=== PATIENT | male | born 1980 | race African-American/Black ===

== ENCOUNTER 2017-05-12 17:32 | Emergency (ER) | payer MEDICAID ==
[~2017-05-12] VITALS: Ht 177.8 cm; Wt 75.0 kg
[~2017-05-12 17:32] MED LIST: PHEN-434
[2017-05-12] MEDS ORDERED: LIDOCAINE HCL 1%/EPI 1:200,000 30 ML VIAL MC ONE (19:00)
[2017-05-12] MEDS ORDERED: TETANUS, DIPHTHERIA, PERTUSSIS VAC/PF 0.5ML (>7YR OLD) IM ONE (19:00)
[2017-05-12 19:17] VITALS: BP 106/64
[2017-05-12] MEDS ORDERED: BACITRACIN ZINC OINT UDPKT TOP ONE (20:00)
== END 2017-05-12 20:28 | disposition home or self-care (01) ==
LOC: ER 17:32
DX: S61.212A Laceration without foreign body of right middle finger without damage to nail, initial encounter (principal); S00.83XA Contusion of other part of head, initial encounter; G40.909 Epilepsy, unspecified, not intractable, without status epilepticus; Y04.1XXA Assault by human bite, initial encounter; Y93.89 Activity, other specified; Y99.8 Other external cause status; Y92.89 Other specified places as the place of occurrence of the external cause
CPT/HCPCS: 12001; 90471; 90715; 99284; X7700; Z7610

== ENCOUNTER 2017-08-29 00:59 | Emergency (ER) | payer MEDICAID ==
[~2017-08-29] VITALS: Ht 177.8 cm; Wt 75.0 kg
[2017-08-29 01:00] VITALS: BP 123/84
== END 2017-08-29 03:01 | disposition left against medical advice (07) ==
LOC: ER 00:59
DX: Z53.21 Procedure and treatment not carried out due to patient leaving prior to being seen by health care provider (principal)

== ENCOUNTER 2018-04-08 21:19 | Emergency (ER) | payer MEDICAID ==
[~2018-04-08] VITALS: Ht 177.8 cm; Wt 56.0 kg
[2018-04-09] MEDS ORDERED: LIDOCAINE HCL 1% 20ML VIAL (Pyxis) INJ INFIL ONE (01:00)
[2018-04-09] MEDS ORDERED: LIDOCAINE HCL/PF 1% 10 MG/ML 5ML VIAL IJ SCH (01:02)
[2018-04-09] MEDS ORDERED: HYDROCODONE/ACETAMINOPHEN 5/325MG TABLET PO ONE (02:15)
[2018-04-09] MEDS ORDERED: BACITRACIN ZINC OINT UDPKT TOP ONE (03:00)
[2018-04-09 03:34] VITALS: BP 108/76
== END 2018-04-09 03:42 | disposition home or self-care (01) ==
LOC: ER 21:19
DX: S60.121A Contusion of right index finger with damage to nail, initial encounter (principal); S60.131A Contusion of right middle finger with damage to nail, initial encounter; S60.141A Contusion of right ring finger with damage to nail, initial encounter; S60.151A Contusion of right little finger with damage to nail, initial encounter; T70.0XXA Otitic barotrauma, initial encounter; T24.111A Burn of first degree of right thigh, initial encounter; T24.101A Burn of first degree of unspecified site of right lower limb, except ankle and foot, initial encounter; T21.16XA Burn of first degree of male genital region, initial encounter; S00.211A Abrasion of right eyelid and periocular area, initial encounter; H93.13 Tinnitus, bilateral; R10.2 Pelvic and perineal pain; W39.XXXA Discharge of firework, initial encounter; Y93.89 Activity, other specified; Y92.89 Other specified places as the place of occurrence of the external cause; F17.210 Nicotine dependence, cigarettes, uncomplicated; Z98.890 Other specified postprocedural states; G40.909 Epilepsy, unspecified, not intractable, without status epilepticus
CPT/HCPCS: 11730; 11740; 16000; 73130; 99284; J3490; Z7610; 16020